=== PATIENT | female | born 1965 | race Two or more races ===

== ENCOUNTER 2017-07-05 15:13 | Emergency (ER) | payer BC ==
[2017-07-05] MEDS: methylPREDNISolone INJ 125 MG/2 ML VIAL (J2930) IV (17:00)
[2017-07-05 17:10] LABS: BASO # 0.1 10^3/uL (0.0-0.2); BASO % 1.2 % (0.0-1.0); EOS # 0.2 10^3/uL (0.0-0.50); EOS % 3.1 % (0.0-3.0); HEMATOCRIT 30.5 % (36.0-47.0); HEMOGLOBIN 9.4 g/dl (12.0-16.0); IMMATURE GRANULOCYTE % 0.4 % (0-0); LYMPH # 1.5 10^3/uL (1.5-4.5); LYMPH % 29.7 % (24.0-44.0); MEAN CORPUSCULAR HEMOGLOBIN 24.4 pg (27.0-33.0); MEAN CORPUSCULAR HGB CONC 30.8 g/dl (32.0-36.5); MEAN CORPUSCULAR VOLUME 79.2 fl (80.0-96.0); MONO # 0.5 10^3/uL (0.0-0.8); MONO % 9.8 % (0.0-5.0); NEUTROPHILS # 2.7 10^3/uL (1.8-7.7); NEUTROPHILS % 55.8 % (36.0-66.0); PLATELET COUNT, AUTOMATED 369 10^3/uL (150-450); RED BLOOD COUNT 3.85 10^6/uL (4.00-5.40); WHITE BLOOD COUNT 4.9 10^3/uL (4.0-10.0)
[2017-07-05 17:48] LABS: ALBUMIN 3.3 GM/DL (3.2-5.2); ALKALINE PHOSPHATASE 67 U/L (45-117); ANION GAP 8 MEQ/L (8-16); BILIRUBIN,TOTAL 0.5 MG/DL (0.2-1.0); CALCIUM LEVEL 9.8 MG/DL (8.5-10.1); CARBON DIOXIDE LEVEL 25 MEQ/L (21-32); CHLORIDE LEVEL 103 MEQ/L (98-107); CREATININE FOR GFR 0.76 MG/DL (0.55-1.30); GLOMERULAR FILTRATION RATE > 60.0 (>51); SODIUM LEVEL 136 MEQ/L (136-145)
[2017-07-05 17:54] LABS: GLUCOSE, FASTING 131 MG/DL (70-100)
[2017-07-05] MEDS: AMOXICILLIN 500 MG CAP PO (18:00)
[2017-07-05 18:17] LABS: ALT/SGPT 43 U/L (12-78); AST/SGOT 38 U/L (7-37); TOTAL PROTEIN 7.4 GM/DL (6.4-8.2)
[2017-07-05 18:18] LABS: BLOOD UREA NITROGEN 13 MG/DL (7-18)
== END 2017-07-05 18:27 | disposition home or self-care (01) ==
LOC: M ED 15:13
DX: R21 Rash and other nonspecific skin eruption (principal); J02.0 Streptococcal pharyngitis; T78.40XA Allergy, unspecified, initial encounter; X58.XXXA Exposure to other specified factors, initial encounter; Y92.89 Other specified places as the place of occurrence of the external cause; I10 Essential (primary) hypertension; Z79.899 Other long term (current) drug therapy; Z88.8 Allergy status to other drugs, medicaments and biological substances
CPT/HCPCS: J2930